=== PATIENT | female | born 1985 | race Caucasian/White ===

== ENCOUNTER 2019-03-30 05:10 | Observation (INO) ==
[2019-03-24 10:51] LABS: BASO# 0.03 X1000 (0.0-0.2); BASO% 0.3 % (0.0-0.8); EOS# 0.05 X1000 (0.0-0.7); EOS% 0.4 % (0.0-10.0); HEMATOCRIT 41.1 % (37.0-47.0); HEMOGLOBIN 13.8 g/dL (12.0-16.0); IMM GRAN# 0.02 X1000 (0.0-0.04); IMM GRAN% 0.2 % (0.0-0.5); LYMPH# 2.15 X1000 (1.2-3.4); LYMPH% 18.8 % (20.5-51.1); MCH 31.1 PG (27-31); MCHC 33.6 g/dL (33-37); MCV 92.6 FL (81-99); MONO# 0.81 X1000 (0.11-0.59); MONO% 7.1 % (1.7-9.3); NEUT# 8.37 X1000 (1.4-6.5); NEUT% 73.2 % (42.2-75.2); PLT 325 X1000 (130-400); RBC 4.44 XMIL (4.2-5.4); RDW 11.6 % (11.5-14.5); WBC 11.43 X1000 (4.8-10.8)
--- NOTE | 2019-03-29 10:07 | HISTORY AND PHYSICAL ---
HISTORY: The patient is a 34-year-old female who has been followed by Dr. Kaushal Bynum for many years, who is having worsening problems with pelvic organ prolapse. The patient is struggling to wear tampons. The cervix is visible with urination. She is having difficulty with intimacy, and she is struggling with constipation. We discussed pessary management and conservative therapy. She is wishing to proceed with supracervical hysterectomy, abdominal sacrocolpopexy, and mid urethral sling. The risks and benefits of this were explained at length. We discussed occult stress incontinence as the etiology for the mid urethral sling. She is wishing to proceed with this operation. PAST MEDICAL HISTORY: Negative for diabetes, hypertension or asthma. PAST SURGICAL HISTORY: Negative. The patient is noted to be a para 1, 0-1-1. ALLERGIES: Bactrim. CURRENT MEDICATIONS: None. FAMILY HISTORY: Positive for hypertension in her father and diabetes in her father. SOCIAL HISTORY: Positive for tobacco use, but stopped in 2010. Negative ETOH or drugs. PHYSICAL EXAMINATION: GENERAL: BMI is 26. HEENT: Normocephalic, atraumatic. PERRLA. EOMI. NECK: No thyromegaly. CV: Regular rate and rhythm without murmur, gallop, or rub. PULMONARY: Clear to auscultation and percussion. ABDOMEN: Soft. : Shows POP-Q stage III prolapse. The leading edge is BA +2. C is -3. D is -4. She has equal lateral detachment bilaterally. Based on total vaginal length, this is actually a stage IV prolapse. NEUROLOGIC: Afocal. ASSESSMENT AND PLAN: Patient with mostly anterior and apical defects. We discussed quality of life and options for therapy including [place] tissue repair, history of pexy with abdominal sacrocolpopexy, and pessary management. She is wanting to correct the problem. We reviewed all the surgical options, and she is wishing to proceed with supracervical hysterectomy, abdominal sacrocolpopexy, and mid urethral sling. The risks and benefits were discussed at length. cc: Miguel Angel Manzanares MD
[2019-03-30] MEDS ORDERED: KEFZOL 1 GM/D5W 2 GM/100 ML IVPB ONE (05:45)
[2019-03-30] MEDS ORDERED: VERSED ONE (05:45)
[2019-03-30] MEDS ORDERED: LR 1,000 ML ONE ×3 (05:45→10:32)
[2019-03-30] MEDS ORDERED: FENTANYL ONE ×2 (05:45→07:30)
[2019-03-30] MEDS ORDERED: DIPRIVAN 1% ONE (05:46)
[2019-03-30] MEDS ORDERED: SODIUM CHLORIDE 0.9% 10 ML ONE (06:00)
[2019-03-30] MEDS ORDERED: NORCURON ONE (06:00)
[2019-03-30] MEDS ORDERED: SENSORCAINE-MPF 0.5%/EPI 1:200,000 ONE (06:26)
[2019-03-30] MEDS ORDERED: D10W 1,000 ML ONE (06:26)
--- NOTE | 2019-03-30 06:35 | H&P REVIEW ---
H&P Update H&P Review: H&P was reviewed and patient was examined, No change has occurred in the patient's condition
[2019-03-30] MEDS ORDERED: DECADRON ONE (07:15)
[2019-03-30] MEDS ORDERED: ZOFRAN ONE (07:15)
[2019-03-30] MEDS ORDERED: TORADOL ONE (07:26)
[2019-03-30] MEDS ORDERED: ROBINUL ONE (07:26)
[2019-03-30] MEDS ORDERED: NEOSTIGMINE ONE (07:27)
[2019-03-30] MEDS ORDERED: LASIX ONE (07:27)
[2019-03-30 07:49] LABS: URINE SOURCE CATH
[2019-03-30 07:51] LABS: BILIRUBIN URINE NEGATIVE (NEGATIVE); BLOOD URINE NEGATIVE (NEGATIVE); COLOR YELLOW; GLUCOSE URINE NEGATIVE (NEGATIVE); KETONE URINE NEGATIVE (NEGATIVE); LEUKOCYTES URINE NEGATIVE (NEGATIVE); NITRITE URINE NEGATIVE (NEGATIVE); PH URINE 7.5; PROTEIN URINE NEGATIVE (NEGATIVE); SP GRAVITY URINE 1.007; TURBIDITY URINE CLEAR (CLEAR); UROBILINOGEN URINE NORMAL (NORMAL)
[2019-03-30 07:52] LABS: UR EPITHELIAL CELLS <10 /HPF (<10); URINE BACTERIA NEGATIVE /HPF; URINE RBC <10 /HPF (<10); URINE WBC <10 /HPF (<10)
[2019-03-30] MEDS ORDERED: DILAUDID ONE (10:39)
[2019-03-30] MEDS: PERIDEX MT SCH ×2 (11:18→20:52)
[2019-03-30] MEDS: LR 1,000 ML IV SCH ×2 (12:00→17:58)
[2019-03-30] MEDS: TORADOL IV SCH ×3 (12:00→20:53)
[2019-03-30] MEDS: COLACE PO SCH ×2 (12:00→20:53)
[2019-03-30] MEDS: CYMBALTA PO SCH ×2 (12:00→20:59)
[2019-03-30] MEDS: NORCO-5 PO PRN ×3 (12:17→20:53)
--- NOTE | 2019-03-30 13:33 | OPERATIVE NOTE ---
PROCEDURE DATE: 03/30/2019 PREOPERATIVE DIAGNOSIS: Pelvic organ prolapse. POSTOPERATIVE DIAGNOSIS: Pelvic organ prolapse. PROCEDURE: [place] supracervical hysterectomy, abdominal sacrocolpopexy, mid urethral sling with Obtryx. SURGEON: Miguel Angel Manzanares MD. ANESTHESIA: General. ESTIMATED BLOOD LOSS: 100 mL. HISTORY: The patient is a 34-year-old female who had been followed by Dr. Bynum for a long period of time and subsequently was seeing me because of advanced stage prolapse. We had discussed pessary management as well as [place] tissue repair. However, because of the severity of her prolapse and because of the need for longevity of cure, a decision was made to proceed with sacrocolpopexy. The risks and benefits have been discussed. OPERATIVE FINDINGS: The patient is found have POP-Q stage III prolapse, most of it being apical and anterior in nature. The uterus was enlarged and globular consistent with adenomyosis. The patient was noted to be very "oozy" with bleeding from peritoneal edges and any type of tissue manipulation. ESTIMATED BLOOD LOSS: 100 mL. OPERATIVE PROCEDURE: Patient is taken to the operating room and placed in supine position. After adequate general anesthesia was obtained, she was placed in the [facility]. Her abdomen and vagina were prepped and draped in the usual fashion. A supraumbilical incision was made and a 12 mm port and sheath were introduced through this incision into the abdominal cavity. Pelvic contents were visualized. Therefore, insufflation with CO2 to an intra-abdominal pressure of 14 was performed. We injected that site with 0.25% Marcaine with epinephrine prior to the incision. We then turned our attention towards the left-sided ports. We again injected the same local anesthetic at our 2 sites for the left-hand ports and we then used a scalpel to make these two 8 mm incisions. These were easily done and then both robotic ports were placed under direct visualization. Right-sided ports were placed in a similar fashion as well after infiltration with the same local anesthetic and under direct visualization with the assistance port being in the right upper quadrant. The patient was then placed in deep Trendelenburg position. Knight catheter was placed and EEA sizers were placed within the vagina and the rectum. At this time, the robot was docked in the usual fashion. Hot scissors were in the right hand and the bipolar PK was in the left hand, and the third arm had the single-tooth tenaculum. Starting at the uterus, we initially elevated the uterus with the single tooth tenaculum and then hospital medical assistant elevated the left fallopian tube away from the ovary. Using the PK, we clamped, cauterized and cut the mesosalpinx and then continued clamp, cauterize and cut fashion through the proximal mesosalpinx, the round ligament and then down the cardinal ligament involving also the utero-ovarian pedicle. After completion of this, we continued down to the peritoneal fold, stopping at that point and then turning our attention towards the right side. We again elevated the fallopian tube away from the ovary and used a clamp, cauterize and cut technique to divide the mesosalpinx, the round ligament, the utero-ovarian pedicle, and then down the cardinal ligament. We got to the area of the peritoneal fold on the right-hand side and then created our bladder flap using primarily sharp dissection. We continued with our bladder dissection well below the cervix into the proximal 1/3 of the vagina. At this time, we then clamped, cauterized and cut the vessels on both sides, having basically an avascular corpus of the uterus. We then used a single blade of the hot scissors and cut across the cervical stump at the level of the endocervical canal as well as the insertion of the uterosacral ligaments. The corpus of the uterus was then placed in the appendiceal bed. We then cauterized the remaining portion of the endocervical canal with a single blade of the hot scissors. We then changed out our tenaculum to a Cardiere grasper and used this to elevate the bladder away from the vagina. We continued with our dissection in the vesicovaginal space for approximately 8 cm. We then turned our attention towards the posterior compartment, creating the rectovaginal space in a very similar fashion, using primarily a spread technique in the avascular space, and we developed approximately 8 to 10 cm in the posterior compartment. We then went up to the sacral promontory and used the third arm to deviate the colon laterally, exposing the sacral promontory. We elevated the peritoneum and incised this. We removed approximately 2 cm of presacral fat, exposing the anterior and longitudinal ligament. She did have vessels on both sides that we cauterized quite easily with the PK and then we were able to identify the ureter on the right side and the venous system of the iliacs on the left-hand side. We then trimmed our mesh in the usual fashion, having approximately 10 cm anteriorly and approximately 9 cm posteriorly. Mesh was placed intra-abdominally and the equipment was changed out to 2 needle drivers. Starting in the vesicovaginal space, we used Campbell-Subhash suture to secure the anterior mesh. Initially starting distally near the urethrovesical neck with an initial surgeon's throw of the Campbell-Subhash suture and 4 half throws after this, we placed approximately 10 to 12 sutures anteriorly and across the cervical stump. We then placed approximately 8 to 10 sutures in the posterior compartment in a similar fashion. All knot arrangements were the same with a surgeon's throw and then 4 half throws. The third arm was brought up to the sacral promontory and 2 sutures were placed through the anterior longitudinal ligament quite easily. We placed additional half throws in this area and left long tails in this area. Excessive mesh was trimmed off. We had excellent support at this time using the EEA sizer to elevate the cervix towards the sacrum while we were securing these 2 sutures through the anterior longitudinal ligament. At this time, we then closely looked at the apex of the vagina and the anterior compartment. There was no evidence of any abnormalities. At this point, we had excellent support so we turned our attention back to peritonealization. We had to use electrocautery to help with hemostasis. We had slow oozes all through this area. The ureter was well out of the operative site that we were cauterizing. We used a V-Loc suture to reperitonealize and had approximately 95% of the mesh reperitonealized after completion of this was done, starting initially at the sacrum, going down to the bifurcation of the mesh and then pursestring suturing closing both anterior and posterior. At this time, we dropped our pressures down. Copious amounts of irrigation was performed, hemostasis was observed at all sites. The decision was made to terminate this portion of the procedure. The robot was undocked and the equipment was removed. We then took the patient out of the deep Trendelenburg position. We introduced the morcellator in through the prior assistance port. We brought the uterus down into the pelvis and we morcellated the uterus, maintaining visualization of the blade throughout. There was no evidence of any abnormalities. Upon this, we removed all of the tissue with no evidence of any gross spilling. We again closely inspected all pedicles and hemostasis was observed, so we used a Beto-Lesley closure system to close the assistance port, deep layers of fascia and peritoneum as well as the supraumbilical camera port. The abdomen was deflated of all CO2 as all ports were removed under direct visualization of the laparoscoped. Nursing services closed all skin incisions with subcuticular 4.0 Vicryl suture and then sterile surgical glue was placed. Vaginally, we removed the Knight catheter. We closely inspected the vagina and cervix. Marked hemostasis was noted. There was no evidence of any suture material. There was no evidence of any banding. We had excellent support in all compartments. The urethra was grasped proximally and distally with Allis clamps and approximately 8 to 10 mL of the same local anesthetic was injected for hydrodissection as well as pain management. Sagittal incision was made and then Metzenbaum scissors were utilized to dissect up to the ischiopubic ramus on each side. Based on the bony landmarks of the ramus as well as the insertion of the adductor longus, a stab incision was made initially on the left-hand side. The halo device was introduced through this incision through the obturator canal to the dry pan operator's finger, which directed the needle out. The mesh was attached to it and it was retracted back through the skin. This was performed on the contralateral side in a similar fashion. Knight catheter had already been removed. Cystoscope was introduced and the bladder was filled with 300 mL of D10. Both ureters were effluxing urine with no difficulty and there were no abnormalities within the bladder whatsoever. Cystoscope was removed. A Dawna clamp was placed the mid urethral position. The tape was brought up with the Dawna clamp, blue tag was excised and sheaths were easily removed. There was no tension on the mesh. Knight catheter was replaced. Mid urethral incision was closed with a running 2.0 Vicryl ligature. Rectal examination was performed and there was no evidence of any penetration or abnormalities of the rectum or sigmoid colon. Sponge count, instrument count and needle counts correct x3. Packs and drains were Knight. Patient was taken out of low adjustable stirrups. She was awakened and taken the recovery room with vital signs stable. cc: Miguel Angel Manzanares MD
--- NOTE | 2019-03-30 18:17 | PROGRESS NOTE ---
DATE: 03/30/2019 TIME: Approximately 5:40 p.m. SUBJECTIVE: Patient is alert and oriented x3. She is sitting in the bed with her at her bedside. She is feeling well with no pain. OBJECTIVE: Vital signs: Afebrile vital signs stable. Abdomen: Incisions are dry and intact. : Urine output is adequate and clear. ASSESSMENT AND PLAN: Routine postoperative care. We will remove the Knight in the a.m. and begin voiding trial. We will plan on discharge after completion of the voiding trial if she has a good evening. cc: Miguel Angel Manzanares MD
[2019-03-31] MEDS: NORCO-5 PO PRN ×2 (00:27→05:25)
[2019-03-31] MEDS: LR 1,000 ML IV SCH (01:55)
[2019-03-31] MEDS: TORADOL IV SCH (06:21)
[2019-03-31 07:38] VITALS: BP 128/75
[2019-03-31] MEDS: PERIDEX MT SCH (08:53)
[2019-03-31] MEDS: COLACE PO SCH (08:53)
[2019-03-31] MEDS: CYMBALTA PO SCH (08:53)
--- NOTE | 2019-03-31 09:12 | DISCHARGE SUMMARY ---
ADMISSION DATE: 03/30/2019 DISCHARGE DATE: 03/31/2019 PRINCIPAL DIAGNOSIS: Pelvic organ prolapse. PROCEDURE: [place]ie supracervical hysterectomy, abdominal sacrocolpopexy, mid urethral sling with Obtryx. Surgeon: Chandrakant Hilario HISTORY: The patient is a 34-year-old female who has been having increasing problems with symptomatic pelvic organ prolapse and refused pessary management. She was admitted for surgical intervention. HOSPITAL COURSE: The patient underwent the above-stated procedure. Blood loss at that time was approximately 100 mL. Postoperative course has been uncomplicated. She is currently undergoing voiding trial and will be could discharge upon completion. DISCHARGE MEDICATIONS: [place] Colace and Toradol. DISCHARGE INSTRUCTIONS: She was instructed on regular diet and decreased activity. cc: Miguel Angel Manzanares MD
== END 2019-03-31 11:31 | disposition home or self-care (01) ==
LOC: 4N 05:10 → OR 05:10
PROVIDERS: ADMIT Obstetrics & Gynecology; ATTEND Obstetrics & Gynecology
CPT/HCPCS: 81001; 84703; 85025; 88307; 94761; 94799; A9270; C1781; J0690; J1100; J1170; J1885; J1940; J2250; J2405; J3010; J7120; S2900